=== PATIENT | female | born 1990 | race African-American/Black ===

== ENCOUNTER → 2016-11-15 | Outpatient (CLI) | payer OTHER ==
[~2016-11-15] MED LIST: ALBUTEROL17 GM INH; ENDOCET 5-3251 EACH PO; FISH OIL 1,0001 CAP PO; FLONASE ALLERG9.9 ML; HYDROCHLOROTHIA25 MG PO; TYLENOL #3 PO; WELLBUTRIN75 M1 PO
--- NOTE | ~2016-11-15 | CR151 ---
[facility] A Service of [facility] RADIOLOGY TEXT RESULTS PATIENT: DAVID LEMUS LOCATION: [facility] : [birth year] UNIT #: [id number] AGE: [address]: STEPHANE ALCALA SEX: F ORDER DR: [id number] [place] [address] [facility]. [place], [place] [address] [id number] O MR#: [id number] Acc #: [id number] NAME: DAVID LEMUS : 1990 SEX: F STUDY DATE/TIME: 11/15/2016 12:16 UNIT: [facility] ROOM: STUDY DESCRIPTION: CR Hip Min 2 Views Rt Attending Physician: Kelley Hernandez Referring Physician: Kelley Hernandez Ordering Physician: Kelley Hernandez Primary Care Physician: Prema Lund M.D. MEDICAL IMAGING REPORT This report is preliminary unless electronic signature is present EXAM Right hip 3 views 11/15/2016 HISTORY Right hip pain for 5 months, worsening in the last 4 weeks. History of prior right hip fracture. FINDINGS 3 views of the right hip demonstrate surgical plate and screws traversing old healed fracture of the right acetabulum. There is osteophytic spurring about the right acetabulum and right femoral head. No acute fracture is seen. The bones are normally mineralized. Multiple round calcifications are seen lateral to the right hip which are nonspecific. They could reflect loose bodies within the joint space or if gluteal, could represent injection granulomas. IMPRESSION Postsurgical changes of prior right acetabular fracture repair. No acute abnormality. Dictated by... Kvng Oseguera M.D. THIS IS AN ELECTRONICALLY VERIFIED REPORT Kvng Oseguera M.D. at 11/18/2016 2:10 PM KRT/pcl TD: 11/15/2016 21:41 JOB #: [id number] MEDICAL IMAGING REPORT [facility] A Service [facility] RADIOLOGY TEXT RESULTS PATIENT: DAVID LEMUS LOCATION: [facility] : [birth year] UNIT #: [id number] AGE: [address]: STEPHANE ALCALA SEX: F ORDER DR: Page 1 of 1 COPY
== END | disposition home or self-care (01) ==
LOC: CRAD 11:57
DX: M25.551 Pain in right hip (principal); Z98.890 Other specified postprocedural states; Z87.81 Personal history of (healed) traumatic fracture
CPT/HCPCS: 73502